=== PATIENT | female | born 1955 | race African-American/Black ===

== ENCOUNTER 2016-11-20 09:15 | Outpatient (RCR) | payer OTHER ==
[~2016-11-20 09:15] MED LIST: ANTIVERT25 MG ORAL; CALCIUM MAGNES1 EAC1 PO; CENTRUM SILVER1 EACH PO; GABAPENTIN300 MG ORAL; IRON55 M1 PO; LISINOPRIL10 MG ORAL; LOVASTATIN40 MG ORAL; LYRICA50 MG ORAL; METFORMIN HCL500 M1 ORAL; OMEPRAZOLE20 M2 ORAL; SPIRONOLACTONE50 MG ORAL; TRAMADOL HCL50 MG ORAL; VITAMIN C500 M1 ORAL; VITAMIN D3400 UNI2 PO; WOMEN'S DAILY1 EAC1 ORAL
== END 2016-11-22 | disposition home or self-care (01) ==
LOC: PTY 09:15
DX: M25.552 Pain in left hip (principal)

== ENCOUNTER → 2016-12-23 | Outpatient (RCR) | payer OTHER | END | disposition home or self-care (01) | LOC: PTY 11-26 08:46 | DX: M25.552 Pain in left hip (principal) ==

== ENCOUNTER 2017-01-20 09:07 | Outpatient (RCR) | payer OTHER | END 2017-01-22 | disposition home or self-care (01) | LOC: PTY 09:07 | DX: M25.552 Pain in left hip (principal); E11.9 Type 2 diabetes mellitus without complications; I10 Essential (primary) hypertension | CPT/HCPCS: 97035; 97110; 97140; G0283 ==

== ENCOUNTER 2017-02-10 08:30 | Outpatient (RCR) | payer OTHER | END 2017-02-22 | disposition home or self-care (01) | LOC: PTY 08:30 | DX: M70.61 Trochanteric bursitis, right hip (principal); M25.551 Pain in right hip; M25.552 Pain in left hip | CPT/HCPCS: 97035; 97110; 97140; 97162; G0283 ==